=== PATIENT | male | born 1945 | race Caucasian/White ===

== ENCOUNTER → 2019-12-19 10:01 | Outpatient (CLI) | payer MEDICARE, BC, SELFPAY ==
--- NOTE | 2019-12-19 | DI.RAD.S_ITS ---
PROCEDURE: FL BARIUM SWALLOW W SPEECH INDICATIONS: Dysphagia, oropharyngeal phase COMPARISON: None. TECHNIQUE: Examination was conducted in conjunction with speech pathology per standard protocol. In the lateral projection, filming was performed of the patient swallowing. AP projection filming may also be performed with patient swallowing. COMPARISON: FINDINGS: Function: The oral preparatory phase appears normal, with proper containment. The subsequent oral propulsive phase, pharyngeal phase, and esophageal phase of swallowing also appear normal with all proffered substances. No laryngotracheal penetration or aspiration. No pathologic vallecular pooling. There was delayed passage of 13 millimeter barium pill at the gastroesophageal junction. Morphology: No cricopharyngeal bar is identified. No cervical esophageal webs. No Zenker's diverticulum. No strictures. IMPRESSION: 1. Normal barium swallow study without evidence of laryngotracheal penetration or aspiration. 2. Delayed passage of 13 millimeter barium tablet at the gastroesophageal junction. Distal esophageal stricture cannot be excluded. Recommend either endoscopy or barium contrasted upper GI series. Dictated by: Silvia Curiel MD, PhD on 12/19/2019 at 12:04 Approved by: Silvia Curiel MD, PhD on 12/19/2019 at 12:06
--- NOTE | 2019-12-19 16:29 | ST.SWALLOW ---
Visit Care Team Role Provider Type Eulalio Quintana MD Primary Care Provider Non-Staff Referring Provider Specialty: Family Practice Address: [address] [place] [address], [id number] Email: Iain Umanzor MD Attending Provider Physician Specialty: General Surgery Address: [address] [place] [address], [id number] Email: Modified Barium Swallow Study [employer] Modified Barium Swallow Study Start: 12/19/19 13:14 Freq: Status: Active Protocol: Document 12/19/19 13:16 LNK (Rec: 12/19/19 13:21 LNK [id number]) Modified Barium Swallow Study Total Time Visit Start Time 10:30 Visit Stop Time 11:00 Total Visit Minutes [address] Umanzor Reason for Referral dysphagia Setting Setting Outpatient Care Patient Information Identification Type Name,Date of Patient History Pt was seen for a Modified Barium Swallow Study (MBSS) due to c/o foods getting stuck in his throat followed by thick secretions. He was referred by his physician Dr. Umanzor. According to the pt this swallowing difficulty has been on and off for about 10 years, but has increased in frequency over the past 2 years. He reported that he has this difficulty often enough that it has become a problem with meals. He will cough up secretions and at times will vomit up secretions . Subjective Observations Pt was seated in the fluoroscopy chair. Instructions and procedures were provided to the pt. He indicated that he understood and agreed to proceed. Patient Positioning Position View Lateral Imaging Lateral View Textures Administered Trials Presented Thin Liquid via Spoon,Thin Liquid via Cup,Pudding Thick Liquid via Spoon,Regular Textures,Barium Tablet Oral Phase Source: MBSIMP (TM) (C) Bolus Specific Scoring Grid Lip Closure WFL Tongue Control During Bolus Hold WFL Bolus Prep/Mastication WFL Bolus Transport/Lingual Motion Minimal Impairment A/P Lingual Propulsion Delay No: premature leakage to the valeculla pre-swallow Number of Seconds Delayed (seconds) <1s Oral Residue WFL Residue Clearing WFL Nasal Regurgitation No Additional Oral Phase Observations OME indicated structures to be WFL. Pt is missing some molars upper and lower. Pharyngeal Phase Source: MBSIMP (TM) (C) Bolus Specific Scoring Grid Delayed Initiation of Pharyngeal Swallow Yes: Mild premature spillage to pyriform sinuses Number of Seconds Delayed (seconds) <1s Soft Palate Elevation WFL Tongue Base Strength/Range of Motion Mild Impairment Residue Along the Tongue Base No Laryngeal Elevation Mild Impairment Anterior Hyoid Movement Mild Impairment Epiglottic Range of Motion WFL Vallecular Residue No Laryngeal Vestibular Closure WFL Pharyngeal Stripping Wave Mild Impairment Posterior Pharyngeal Wall Residue Yes Clearance of Posterior Pharyngeal Wall Minimal Impairment Residue Upper Esophageal Sphincter Opening WFL Residue in the Pyriform Sinuses No Esophageal Clearance Upright Position Mild Impairment Pharyngoesophageal Backflow Observed No Additional Pharyngeal Phase Observations Pt presented with decreased hyolaryngeal elevation and hyoid movement which resulted in mild pooling at the base of the tongue and the posterior pharyngeal wall. Additionally there was mildly decreased laryngopharyngeal contact contributing to the pooling on the posterior pharyngeal wall . Laryngeal vestibule was adequately sealed with full epiglottal inversion observed. No laryngeal penetration or aspiration was observed. A/P View Esophageal Observations Esophageal Function Given am 13mm barium tablet, the pt was able to swallow the tablet without difficulty. However, when screening the esophagus, it was noted that the clearance of the tablet was slowed through the esophagus. The tablet stopped before entering the stomach for ~15 seconds indicating a possible narrowing of the esophagus at that point. Finally, the tablet passed in to the stomach. Clinical Impressions Dysphagia Type esophageal Findings Pt does not present with oropharyngeal dysphagia Patient Appropriate for Therapy No Recommendations Diet Comments Continue current diet Aspiration Precautions Recommended Precautions Alternate Liquids/Solids,Small Bites/Sips Treatment Plan Recommended Referrals Primary Care Physician,GI Consult Compensatory Strategies Recommendations Small Bites and Sips,Alternate Liquids/Solids
== END ==
PROVIDERS: PCP Family Medicine; Referring Provider Family Medicine; Visit Provider Surgery
DX: R13.12 Dysphagia, oropharyngeal phase (principal)
CPT/HCPCS: 74230; 92611